=== PATIENT | female | born 1965 | race Caucasian/White ===

== ENCOUNTER 2017-08-07 15:38 | Outpatient (CLI) | payer OTHER | END 2017-08-07 15:39 | disposition home or self-care (01) | LOC: BICRAD 15:38 | PROVIDERS: ATTEND Family Medicine | DX: M25.461 Effusion, right knee (principal); M25.462 Effusion, left knee; M25.561 Pain in right knee; M25.562 Pain in left knee; J44.9 Chronic obstructive pulmonary disease, unspecified; J98.4 Other disorders of lung | CPT/HCPCS: 71046 ==

== ENCOUNTER 2017-08-11 13:56 | Outpatient (CLI) | payer OTHER | END 2017-08-11 13:57 | disposition home or self-care (01) | LOC: BICULT 13:56 | PROVIDERS: ATTEND Family Medicine | DX: R22.42 Localized swelling, mass and lump, left lower limb (principal); M71.22 Synovial cyst of popliteal space [Baker], left knee ==

== ENCOUNTER 2017-09-17 08:11 | Outpatient (CLI) | payer OTHER | END 2017-09-17 08:12 | disposition home or self-care (01) | LOC: BICMRI 08:11 | PROVIDERS: ATTEND Orthopaedic Surgery | DX: M25.562 Pain in left knee (principal); M25.462 Effusion, left knee; M71.22 Synovial cyst of popliteal space [Baker], left knee ==

== ENCOUNTER 2017-12-09 13:16 | Outpatient (CLI) | payer OTHER | END 2017-12-09 13:17 | disposition home or self-care (01) | LOC: BICMAMMO 13:16 | PROVIDERS: ATTEND Family Medicine | DX: Z12.31 Encounter for screening mammogram for malignant neoplasm of breast (principal); Z13.820 Encounter for screening for osteoporosis; M85.88 Other specified disorders of bone density and structure, other site; M85.859 Other specified disorders of bone density and structure, unspecified thigh; Z80.3 Family history of malignant neoplasm of breast | CPT/HCPCS: 77067; 77080 ==

== ENCOUNTER 2018-03-29 11:44 | Outpatient (CLI) | payer OTHER ==
--- NOTE | 2018-03-29 16:22 | MRI ---
MRI BRAIN WITH AND WITHOUT CONTRAST: HISTORY: Seizures. Convulsions. Fainting. COMPARISON: None. TECHNIQUE: A brain MRI is performed with and without intravenous Gadolinium administration. Multisequential, mu ltiplanar imaging is performed. FINDINGS: No hemorrhage on the coronal gradient echo sequence. Symmetric signal intensity of the hippocampi. The calvarium has a normal marrow signal intensity. Midline brain parenchymal structures are unremar kable. Central arterial flow voids are maintained. Absent restricted diffusion. No brain parenchymal mass, mass effect, or midline shift. Brain volume is age appropriate. Cortical owens white matter differentiation is preserved. The ventricles and sulci are patent and symmetric. Minimal T2 and FLAIR white matter hyperintensities due to chronic small vessel ischemic changes. There is mucosal disease involving the bilateral mastoid sinuses and ethmoid air cells. No pathologic enhancement of the brain parenchyma. There is an abnormal intrinsic T1 hyperintense lesion involving the left aspect of the sella, presume d to be associated with the left aspect of the pituitary gland. This intrinsic T1 hyperintense lesio n does have intrinsic FLAIR and T2 hyperintensity. Based on the axial T2 and FLAIR images, this les ion measures 1.1 cm anterior-posterior x 0.8 cm mediolateral. Based on the coronal T1 weighted image s, this lesion measures 0.7 cm. IMPRESSION: 1. No pathologic enhancement of the brain parenchyma. 2. No evidence of mesial temporal sclerosis. Absent restricted diffusion. No acute infarct. 3. Intrinsic T1 and T2 hyperintense lesion associated with the left aspect of the sella, presumed to be intrinsic to the pituitary gland. Dedicated pituitary protocol magnetic resonance imaging is rec ommended to assess a presumed adenoma. POS: [facility]
--- NOTE | 2018-03-31 09:30 | EEG ---
Referring Physician: Smooth [facility] EEG # [id number] TEST TYPE: ROUTINE OUTPATIENT REPORT: AN EEG USING THE [employer]NATIONAL TEN-TWENTY SYSTEM OF ELECTRODE PLACEMENT WAS PERFORMED. The waking background is a 9 hertz medium amplitude alpha frequency. The patient became drowsy but no sleep was seen. Hyperventilation and photic stimulation were unremarkable. No epileptiform features were seen. IMPRESSION: THIS IS A NORMAL AWAKE EEG. Analytics Associate: VY Cello Teacher: MAURO.SOSA OCHOA
== END 2018-03-29 11:45 | disposition home or self-care (01) ==
LOC: MRI 11:44
PROVIDERS: ATTEND Psychiatry & Neurology Neurology
DX: R56.9 Unspecified convulsions (principal); G93.9 Disorder of brain, unspecified
CPT/HCPCS: 70553; 95816

== ENCOUNTER 2018-06-21 16:19 | Outpatient (CLI) | payer OTHER ==
--- NOTE | 2018-06-21 19:01 | RAD ---
CHEST TWO VIEWS: HISTORY: A 53-year-old female with a history of cough, dyspnea, and fever off and on for two weeks. COMPARISON: 08/07/2017 FINDINGS: Increased bronchovascular markings noted bilaterally. There is some minimal patchy opacity changes i n the left mid lung zone and right middle lobe region, raising concern for minimal or early pneumonia . Heart size is within normal limits. No significant pleural effusion. IMPRESSION: Minimal patchy parenchymal changes in the left mid lung zone and in the region of the lingula, worris ome for minimal early bilateral atypical pneumonia or pneumonitis. Findings appear to be new when co mpared to a 08/07/2017 study. Suggest treatment and followup for complete clearing. POS: [facility]
== END 2018-06-21 16:20 | disposition home or self-care (01) ==
LOC: BICRAD 16:19
PROVIDERS: ATTEND Family Medicine
DX: R05 Cough (principal)
CPT/HCPCS: 71046

== ENCOUNTER 2018-12-21 13:44 | Outpatient (CLI) | payer OTHER ==
--- NOTE | 2018-12-21 14:33 | MMO ---
Bilateral MAMMO Bilat Screen DDI. CLINICAL HISTORY: Patient is 53 years old and is seen for screening. The patient has no family history of breast cancer. The patient has no personal history of cancer. VIEWS: The views performed were: bilateral craniocaudal and bilateral mediolateral oblique. FILMS COMPARED: The present examination has been compared to prior imaging studies performed at [facility] on 10/05/2013, 10/11/2014, 10/15/2015 and 10/15/2016. This study has been interpreted with the assistance of computer-aided detection. MAMMOGRAM FINDINGS: There are scattered fibroglandular densities. There are no suspicious masses, suspicious calcifications, or new areas of architectural distortion. IMPRESSION: THERE IS NO MAMMOGRAPHIC EVIDENCE OF MALIGNANCY. A ROUTINE FOLLOW-UP MAMMOGRAM IN 1 YEAR IS RECOMMENDED. ACR BI-RADS Category 1 - Negative MAMMOGRAPHY NOTE: 1. A negative mammogram report should not delay a biopsy if a dominant of clinically suspicious mass is present. 2. Approximately 10% to 15% of breast cancers are not detected by mammography. 3. Adenosis and dense breasts may obscure an underlying neoplasm.
--- NOTE | 2018-12-21 15:11 | BD ---
BONE DENSITOMETRY USING DEXA: HISTORY: Postmenopausal screening for osteoporosis. FINDINGS: LUMBAR SPINE BMD (g/cm2) T-SCORE Z-SCORE L1 0.774 -2.0 -1.1 L2 0.777 -2.3 -1.3 L3 0.813 -2.5 -1.4 L4 0.858 -1.8 -0.8 TOTAL 0.810 -2.2 -1.2 NECK 0.572 -2.5 -1.5 TOTAL 0.779 -1.3 -0.7 IMPRESSION: Osteoporosis. POS: [facility]
--- NOTE | 2018-12-21 15:28 | RAD ---
Exam:Right knee 4 views HISTORY: Osteoarthritis. COMPARISON: None FINDINGS: No joint effusion. No fracture. No malalignment. No significant loss of disc space height. IMPRESSION: Unremarkable right knee 4 views
--- NOTE | 2018-12-21 15:28 | RAD ---
EXAM: Chest PA and lateral: HISTORY: Pulmonary smoker, x20 years. COPD. COMPARISON: 06/21/2018 FINDINGS: Heart: Normal cardiac silhouette Aorta: Unremarkable Pulmonary vessels: Normal Costophrenic angles: Costophrenic angles are clear. Lungs: No consolidation or masses. Chronic changes of the lung parenchyma. Scar/subsegmental atelecta sis in the lingula. Pneumothorax: No pneumothorax Osseous structures: No osseous abnormalities IMPRESSION: No acute cardiopulmonary process.
--- NOTE | 2018-12-21 15:29 | RAD ---
Exam:Left knee 4 views HISTORY: Osteoarthritis. Torn meniscus. COMPARISON: None FINDINGS: No joint effusion. No fracture or malalignment.. IMPRESSION: Unremarkable 4 views left knee.
== END 2018-12-21 13:45 | disposition home or self-care (01) ==
LOC: BICMAMMO 13:44
PROVIDERS: ATTEND Family Medicine
DX: Z12.31 Encounter for screening mammogram for malignant neoplasm of breast (principal); Z13.820 Encounter for screening for osteoporosis; J44.9 Chronic obstructive pulmonary disease, unspecified; M17.10 Unilateral primary osteoarthritis, unspecified knee; M81.0 Age-related osteoporosis without current pathological fracture
CPT/HCPCS: 71046; 77067; 77080

== ENCOUNTER 2019-12-27 10:14 | Outpatient (CLI) | payer OTHER ==
--- NOTE | 2019-12-27 10:43 | MMO ---
Bilateral MAMMO Bilat Screen DDI. CLINICAL HISTORY: Patient is 54 years old and is seen for screening. The patient has no family history of breast cancer. The patient has no personal history of cancer. VIEWS: The views performed were: bilateral craniocaudal and bilateral mediolateral oblique. FILMS COMPARED: The present examination has been compared to prior imaging studies performed at [facility] on 10/11/2014, 10/15/2015, 10/15/2016 and 12/21/2018. This study has been interpreted with the assistance of computer-aided detection. MAMMOGRAM FINDINGS: There are scattered fibroglandular densities. There are no suspicious masses, suspicious calcifications, or new areas of architectural distortion. IMPRESSION: THERE IS NO MAMMOGRAPHIC EVIDENCE OF MALIGNANCY. A ROUTINE FOLLOW-UP MAMMOGRAM IN 1 YEAR IS RECOMMENDED. ACR BI-RADS Category 1 - Negative MAMMOGRAPHY NOTE: 1. A negative mammogram report should not delay a biopsy if a dominant of clinically suspicious mass is present. 2. Approximately 10% to 15% of breast cancers are not detected by mammography. 3. Adenosis and dense breasts may obscure an underlying neoplasm. Reported by: JESI ALEMAN MD Electonically Signed: [id number]
== END 2019-12-27 10:15 | disposition home or self-care (01) ==
LOC: BICMAMMO 10:14
PROVIDERS: ATTEND Family Medicine
DX: Z12.31 Encounter for screening mammogram for malignant neoplasm of breast (principal)
CPT/HCPCS: 77067

== ENCOUNTER 2020-05-30 09:19 | Outpatient (CLI) | payer OTHER ==
--- NOTE | 2020-05-30 11:48 | ULT ---
Bilateral renal ultrasound with renal artery Doppler evaluation CLINICAL INDICATION: Chronic kidney disease stage III. COMPARISON: None. FINDINGS: Right kidney: There is no evidence of a renal mass, renal calculus, or hydronephrosis seen. Mild danielle l cortical thinning is present.The right kidney measures 8.2 cm x 3.5 cm. Left kidney: A 2.1 cm anechoic structure is seen in the superior pole left kidney most compatible wit h a renal cyst. No hydronephrosis or renal cortical thinning is present on the left.The left kidney measures 9.5 cm x 4.4 cm. Urinary bladder: Decompressed and not well evaluated on this examination. Urinary bladder volume is 1 2.8 mL. Renal artery Doppler evaluation with spectral analysis and color flow: The peak systolic velocity in the main right renal artery is 60.2 cm/s with peak systolic velocity in the main left renal artery of 92 cm/s. Peak systolic velocity in the abdominal aorta is 115 cm/s. The right renal artery to aorta ratio 0.52 and the left renal artery to aorta ratio is 0.8. Normal re nal artery to aorta ratio is less than 3. Resistive index in the right renal arcuate artery 0.67 on the left is 0.64. Normal resistive indices are less than 0.7. IMPRESSION: 1. No evidence of hydronephrosis. 2. Mild right renal cortical thinning. 3. Left renal cyst. 4. Normal renal artery to aorta ratios and resistive indices in the arcuate arteries.
== END 2020-05-30 09:20 | disposition home or self-care (01) ==
LOC: BICULT 09:19
PROVIDERS: ATTEND Internal Medicine Nephrology
DX: N18.30 Chronic kidney disease, stage 3 unspecified (principal); N28.1 Cyst of kidney, acquired; N28.89 Other specified disorders of kidney and ureter
CPT/HCPCS: 76770; 93975

== ENCOUNTER 2021-04-18 10:34 | Outpatient (CLI) | payer OTHER ==
[2021-04-18 12:04] LABS: #Eosinphils 0.1 10x3/uL (0.0-0.5); #Monocytes 0.3 10x3/uL (0.0-1.1); #Neutrophils 1.7 10x3/uL (1.5-8.4); %Basophils 0.8 % (0.0-2.0); %Eosinophils 2.5 % (0.0-6.0); %Lymphocytes 44.7 % (18.0-47.0); %Monocytes 8.5 % (0.0-10.0); %Neutrophils 43.2 % (40.0-75.0); Hemoglobin 15.8 g/dL (12.0-15.5); Mean Corpuscular HGB CONC 31.6 g/dL (32.0-36.0); Mean Corpuscular Hemoglobin 28.8 pg (27.0-33.0); Mean Corpuscular Volume 91.1 fl (81.6-98.3); Mean Platelet Volume 12.2 fl (7.4-10.4); Platelet Count 181 10x3/uL (150-450); RBC Distribution Width 17.8 % (11.5-14.5); Red Blood Cell (RBC) Count 5.49 10x6/uL (3.90-5.03)
[2021-04-18 12:35] LABS: Prothrombin Time 10.9 sec (9.5-12.1)
[2021-04-18 12:40] LABS: Anion Gap 11 mmol/L (10-20); BUN (Urea Nitrogen) 9 mg/dL (9.8-20.1); Calc. Creatinine Clearance 0 mL/min (70-130); Calcium 9.4 mg/dL (7.8-10.44); Carbon Dioxide 31 mmol/L (22-29); Chloride 102 mmol/L (98-107); Glucose 77 mg/dL (70-105); Potassium 4.1 mmol/L (3.5-5.1); Sodium 140 mmol/L (136-145)
[2021-04-19 01:05] LABS: SARS-CoV-2 PCR by NAA Not Detected (NotDetected)
== END 2021-04-18 10:35 | disposition home or self-care (01) ==
LOC: LABBT 10:34
PROVIDERS: ATTEND Orthopaedic Surgery
DX: Z01.818 Encounter for other preprocedural examination (principal); M17.11 Unilateral primary osteoarthritis, right knee; Z20.822 Contact with and (suspected) exposure to COVID-19
CPT/HCPCS: 80048; 85025; 85610; 87081; 93005; 93010; U0003; U0005

== ENCOUNTER 2021-06-13 10:11 | Outpatient (CLI) | payer OTHER ==
[2021-06-13 12:24] LABS: #Eosinphils 0.1 10x3/uL (0.0-0.5); #Monocytes 0.4 10x3/uL (0.0-1.1); #Neutrophils 2.8 10x3/uL (1.5-8.4); %Basophils 0.2 % (0.0-2.0); %Eosinophils 1.6 % (0.0-6.0); %Lymphocytes 33.5 % (18.0-47.0); %Monocytes 8.2 % (0.0-10.0); %Neutrophils 56.3 % (40.0-75.0); Hemoglobin 16.8 g/dL (12.0-15.5); Mean Corpuscular HGB CONC 31.4 g/dL (32.0-36.0); Mean Corpuscular Hemoglobin 29.2 pg (27.0-33.0); Mean Corpuscular Volume 92.9 fl (81.6-98.3); Platelet Count 164 10x3/uL (150-450); RBC Distribution Width 17.1 % (11.5-14.5); Red Blood Cell (RBC) Count 5.76 10x6/uL (3.90-5.03)
[2021-06-13 12:45] LABS: Prothrombin Time 10.7 sec (9.5-12.1)
[2021-06-13 13:07] LABS: Anion Gap 14 mmol/L (10-20); BUN (Urea Nitrogen) 12 mg/dL (9.8-20.1); Calc. Creatinine Clearance 0 mL/min (70-130); Calcium 9.2 mg/dL (7.8-10.44); Carbon Dioxide 31 mmol/L (22-29); Chloride 101 mmol/L (98-107); Glucose 90 mg/dL (70-105); Potassium 4.5 mmol/L (3.5-5.1); Sodium 141 mmol/L (136-145)
[2021-06-13 22:08] LABS: SARS-CoV-2 PCR by NAA Not Detected (NotDetected)
== END 2021-06-13 10:12 | disposition home or self-care (01) ==
LOC: LABBT 10:11
PROVIDERS: ATTEND Orthopaedic Surgery
DX: Z01.818 Encounter for other preprocedural examination (principal); M17.11 Unilateral primary osteoarthritis, right knee; Z20.822 Contact with and (suspected) exposure to COVID-19
CPT/HCPCS: 80048; 85025; 85610; 87081; 93005; 93010; U0003; U0005

== ENCOUNTER 2021-06-18 07:08 | Inpatient (IN) | payer OTHER ==
[2021-06-17 12:20] VITALS: BMI 22.1
[2021-06-18] MEDS ORDERED: Sodium Chloride 0.9% 100 ML ONE (07:44)
[2021-06-18] MEDS ORDERED: Tranexamic Acid 1,000 MG/10 ML VIAL ONE (07:44)
[2021-06-18] MEDS ORDERED: ceFAZolin 2 GM/DEX 5% 100 ML BAG ONE (07:44)
[2021-06-18] MEDS ORDERED: Vancomycin 1 GM/200 ML BAG ONE (07:44)
[2021-06-18] MEDS ORDERED: Fentanyl 100 MCG/2 ML VIAL ONE ×2 (08:50→09:45)
[2021-06-18] MEDS ORDERED: Midazolam HCl 2 mg/2 ml Vial ONE (08:50)
[2021-06-18] MEDS ORDERED: Sodium Chloride 0.9% 10 ML ONE (09:46)
[2021-06-18] MEDS ORDERED: HYDROmorphone 2 MG/ML VIAL ONE (09:46)
[2021-06-18] MEDS ORDERED: Fentanyl 100 MCG/2 ML VIAL SLOW IVP PRN (10:04)
[2021-06-18] MEDS ORDERED: PROPOFOL 200 MG/20 ML VIAL ONE (10:15)
[2021-06-18] MEDS ORDERED: Bupivacaine HCl 0.5%/Epinephrine 1:200,000/PF 30 ml Vial ONE (10:15)
[2021-06-18] MEDS ORDERED: Metoclopramide HCl 10 MG/2 ML VIAL ONE (10:15)
[2021-06-18] MEDS ORDERED: traMADol HCl 50 MG TAB PO PRN ×2 (10:15)
[2021-06-18] MEDS ORDERED: Lidocaine 1% PF 5 ML VIAL ONE (10:15)
[2021-06-18] MEDS ORDERED: Ondansetron PF 4 MG/2 ML Vial ONE (10:15)
[2021-06-18] MEDS ORDERED: Ondansetron PF 4 MG/2 ML Vial IVP PRN ×3 (10:15→12:13)
[2021-06-18] MEDS ORDERED: HYDROcodone/Acetaminophen 10/325 mg Tablet PO PRN ×2 (10:15)
[2021-06-18] MEDS ORDERED: Dexamethasone 20 MG/5 ML VIAL ONE (10:15)
[2021-06-18] MEDS ORDERED: Zolpidem Tartrate 5 MG TAB PO PRN ×3 (10:15→12:13)
[2021-06-18] MEDS ORDERED: Ropivacaine 0.2% 550 ML 550 ML NERVE BLCK SCH (10:15)
[2021-06-18] MEDS ORDERED: Promethazine HCl 25 MG/ML VIAL IM PRN ×4 (10:15→12:13)
[2021-06-18] MEDS ORDERED: EPINEPHrine 1 MG/ML AMP ONE (10:41)
[2021-06-18] MEDS ORDERED: Bupivacaine 0.25% 10 ML VIAL ONE ×2 (10:41→11:27)
[2021-06-18] MEDS ORDERED: diphenhydrAMINE 25 MG CAP PO PRN ×2 (12:13)
[2021-06-18] MEDS ORDERED: Meperidine HCl/PF 25 MG/ML VIAL SLOW IVP PRN (12:13)
[2021-06-18] MEDS ORDERED: diphenhydrAMINE 50 MG/ML VIAL IM PRN (12:13)
[2021-06-18] MEDS ORDERED: diphenhydrAMINE 50 MG/ML VIAL IVP PRN (12:13)
[2021-06-18] MEDS ORDERED: fentaNYL Citrate/PF 2,000 MCG in Sodium Chloride 0.9% 60 ML IV PRN (12:13)
[2021-06-18] MEDS ORDERED: Naloxone HCl 0.4 mg/ml Vial IV PRN (12:13)
[2021-06-18] MEDS ORDERED: Ondansetron HCl/PF 4 MG/2 ML Vial IVP PRN (12:13)
[2021-06-18] MEDS ORDERED: Acetaminophen 325 MG TAB PO PRN (12:13)
[2021-06-18] MEDS ORDERED: Promethazine HCl 25 MG/ML VIAL IVPB PRN (12:13)
[2021-06-18] MEDS ORDERED: HYDROmorphone 2 MG/ML VIAL SLOW IVP PRN (12:13)
[2021-06-18] MEDS ORDERED: Communication Order-Pharmacy FS SCH (12:15)
[2021-06-18] MEDS ORDERED: traZODone HCl 50 MG TAB PO PRN (15:47)
[2021-06-18] MEDS ORDERED: Albuterol Sulfate 2.5 mg/3 ml Neb NEB PRN (15:55)
[2021-06-18] MEDS: Sodium Chloride 0.9% 1,000 ML IV SCH ×2 (16:48→23:28)
[2021-06-18] MEDS: ceFAZolin Sodium/D5W 2 GM in Premix Bag 1 BAG IVPB SCH ×2 (16:48→23:28)
[2021-06-18] MEDS ORDERED: Vancomycin 1 GM in Premix Bag 1 BAG IVPB SCH (21:00)
[2021-06-18] MEDS ORDERED: Pregabalin 75 MG CAP PO SCH (21:00)
[2021-06-18] MEDS: Aspirin 81 mg Enteric Coated Tablet PO SCH (21:10)
[2021-06-18] MEDS: levETIRAcetam 500 MG TAB PO SCH (21:11)
[2021-06-18] MEDS: Montelukast Sodium 10 mg Tablet PO SCH (21:11)
[2021-06-18] MEDS: Atorvastatin Calcium 10 MG TAB PO SCH (21:11)
[2021-06-18] MEDS: lamoTRIgine 25 MG TAB PO SCH (21:11)
[2021-06-19 07:19] LABS: Hemoglobin 14.6 g/dL (12.0-16.0); Mean Corpuscular HGB CONC 32.5 g/dL (32.0-36.0); Mean Corpuscular Hemoglobin 30.5 pg (27.0-31.0); Mean Corpuscular Volume 93.9 fL (78.0-98.0); Mean Platelet Volume 10.3 fL (7.4-10.4); Platelet Count 103 thou/uL (130-400); RBC Distribution Width 15.6 % (11.5-14.5); Red Blood Cell (RBC) Count 4.79 mill/uL (4.20-5.40); White Blood Cell (WBC) Count 6.5 thou/uL (4.8-10.8)
[2021-06-19] MEDS: Aspirin 81 mg Enteric Coated Tablet PO SCH ×2 (08:46→20:51)
[2021-06-19] MEDS: Ferrous Gluconate 324 MG TAB PO SCH ×2 (08:47→20:50)
[2021-06-19] MEDS: levETIRAcetam 500 MG TAB PO SCH ×2 (08:47→20:50)
[2021-06-19] MEDS: Multivitamin W/ Minerals 1 TAB PO SCH (08:47)
[2021-06-19] MEDS: lamoTRIgine 25 MG TAB PO SCH ×2 (08:48→20:50)
[2021-06-19] MEDS: DULoxetine 30 MG CAP PO SCH (08:49)
[2021-06-19] MEDS: Furosemide 20 MG TAB PO SCH (08:49)
[2021-06-19] MEDS: Senokot S 8.6-50 MG TAB PO SCH ×2 (08:50→20:51)
[2021-06-19] MEDS ORDERED: FLU VACC QS2021-22(6MOS UP)/PF 60 MCG/0.5 ML SYRINGE IM ONE (09:00)
[2021-06-19] MEDS: Atorvastatin Calcium 10 MG TAB PO SCH (20:50)
[2021-06-19] MEDS: Montelukast Sodium 10 mg Tablet PO SCH (20:50)
[2021-06-19] MEDS: Sodium Chloride 0.9% 1,000 ML IV SCH ×2 (20:51→20:52)
[2021-06-20] MEDS: Sodium Chloride 0.9% 1,000 ML IV SCH ×2 (05:04→20:56)
[2021-06-20 07:16] LABS: Hemoglobin 14.5 g/dL (12.0-16.0); Mean Corpuscular HGB CONC 32.8 g/dL (32.0-36.0); Mean Corpuscular Hemoglobin 30.7 pg (27.0-31.0); Mean Corpuscular Volume 93.4 fL (78.0-98.0); Mean Platelet Volume 10.9 fL (7.4-10.4); Platelet Count 94 thou/uL (130-400); RBC Distribution Width 15.7 % (11.5-14.5); Red Blood Cell (RBC) Count 4.74 mill/uL (4.20-5.40); White Blood Cell (WBC) Count 6.8 thou/uL (4.8-10.8)
[2021-06-20] MEDS: Multivitamin W/ Minerals 1 TAB PO SCH (09:19)
[2021-06-20] MEDS: Aspirin 81 mg Enteric Coated Tablet PO SCH ×2 (09:19→20:57)
[2021-06-20] MEDS: DULoxetine 30 MG CAP PO SCH (09:19)
[2021-06-20] MEDS: levETIRAcetam 500 MG TAB PO SCH ×2 (09:20→20:58)
[2021-06-20] MEDS: lamoTRIgine 25 MG TAB PO SCH ×2 (09:21→20:59)
[2021-06-20] MEDS: Ferrous Gluconate 324 MG TAB PO SCH ×2 (09:22→20:59)
[2021-06-20] MEDS: Furosemide 20 MG TAB PO SCH (09:23)
[2021-06-20] MEDS: Senokot S 8.6-50 MG TAB PO SCH ×2 (09:23→20:59)
[2021-06-20 09:40] LABS: ALT (SGPT) 42 U/L (8-55); AST (SGOT) 37 U/L (5-34); Alkaline Phosphatase 144 U/L (40-110); Anion Gap 12 mmol/L (10-20); BUN (Urea Nitrogen) 9 mg/dL (9.8-20.1); Bilirubin, Total 1.2 mg/dL (0.2-1.2); Calc. Creatinine Clearance 73 mL/min (70-130); Carbon Dioxide 27 mmol/L (22-29); Chloride 100 mmol/L (98-107); Globulin 3.1 g/dL (2.4-3.5); Glucose 96 mg/dL (70-105); Potassium 3.7 mmol/L (3.5-5.1); Protein, Total 6.1 g/dL (6.0-8.3); Sodium 135 mmol/L (136-145)
[2021-06-20] MEDS ORDERED: Furosemide 20 MG/2 ML VIAL SLOW IVP SCH (10:00)
[2021-06-20] MEDS ORDERED: predniSONE 20 MG TAB PO SCH (10:45)
[2021-06-20] MEDS ORDERED: Doxycycline 100 MG CAP PO SCH (10:45)
[2021-06-20] MEDS ORDERED: traZODone HCl 50 MG TAB PO PRN (10:53)
[2021-06-20] MEDS ORDERED: Metoclopramide HCl 10 MG/2 ML VIAL IVP PRN (11:59)
[2021-06-20] MEDS ORDERED: HYDROcodone/Acetaminophen 10/325 mg Tablet PO PRN ×2 (13:14)
[2021-06-20] MEDS: Pregabalin 75 MG CAP PO SCH (20:58)
[2021-06-20] MEDS: Doxycycline 100 MG CAP PO SCH (21:00)
[2021-06-20] MEDS ORDERED: Atorvastatin Calcium 10 MG TAB PO SCH (21:00)
[2021-06-20] MEDS ORDERED: Montelukast Sodium 10 mg Tablet PO SCH (21:00)
[2021-06-21] MEDS: Sodium Chloride 0.9% 1,000 ML IV SCH ×2 (02:30→10:42)
[2021-06-21 06:11] LABS: Actual Bicarbonate (HCO3v) 30 mEq/L (22-28); Base Excess 4.6 mEq/L (-2.0 to +3.0); Calcium, Ionized (venous) 1.11 mmol/L (1.16-1.32); Chloride (VBG) 102 mmol/L (98-106); Potassium (VBG) 3.63 mmol/L (3.70-5.30); Sodium 136.1 mmol/L (133-146); pH (venous) 7.43 (7.32-7.43)
[2021-06-21 06:44] LABS: ALT (SGPT) 27 U/L (8-55); AST (SGOT) 15 U/L (5-34); Albumin 2.8 g/dL (3.5-5.0); Alkaline Phosphatase 115 U/L (40-110); Anion Gap 9 mmol/L (10-20); BUN (Urea Nitrogen) 12 mg/dL (9.8-20.1); Bilirubin, Total 0.8 mg/dL (0.2-1.2); Calc. Creatinine Clearance 73 mL/min (70-130); Calcium 8.9 mg/dL (7.8-10.44); Carbon Dioxide 29 mmol/L (22-29); Chloride 100 mmol/L (98-107); Globulin 2.9 g/dL (2.4-3.5); Glucose 100 mg/dL (70-105); Magnesium 2.1 mg/dL (1.6-2.6); Phosphorus 2.5 mg/dL (2.3-4.7); Potassium 3.3 mmol/L (3.5-5.1); Protein, Total 5.7 g/dL (6.0-8.3); Sodium 135 mmol/L (136-145)
[2021-06-21 06:49] LABS: #Monocytes 0.5 thou/uL (0.11-0.59); #Neutrophils 4.5 thou/uL (1.40-6.50); %Basophils 0.8 % (0.0-1.0); %Eosinophils 0.2 % (0.0-10.0); %Lymphocytes 16.9 % (21.0-51.0); %Monocytes 8.1 % (0.0-10.0); %Neutrophils 73.9 % (42.0-75.0); Hemoglobin 12.9 g/dL (12.0-16.0); Mean Corpuscular HGB CONC 32.4 g/dL (32.0-36.0); Mean Corpuscular Hemoglobin 30.3 pg (27.0-31.0); Mean Corpuscular Volume 93.6 fL (78.0-98.0); Mean Platelet Volume 10.3 fL (7.4-10.4); Platelet Count 89 thou/uL (130-400); RBC Distribution Width 15.4 % (11.5-14.5); Red Blood Cell (RBC) Count 4.24 mill/uL (4.20-5.40)
[2021-06-21] MEDS ORDERED: Potassium Chloride 20 MEQ TAB PO SCH (07:00)
[2021-06-21] MEDS ORDERED: predniSONE 20 MG TAB PO SCH (08:00)
[2021-06-21] MEDS: levETIRAcetam 500 MG TAB PO SCH (08:55)
[2021-06-21] MEDS: Doxycycline 100 MG CAP PO SCH (08:55)
[2021-06-21] MEDS: Senokot S 8.6-50 MG TAB PO SCH (08:56)
[2021-06-21] MEDS: lamoTRIgine 25 MG TAB PO SCH (08:57)
[2021-06-21] MEDS: Ferrous Gluconate 324 MG TAB PO SCH (08:57)
[2021-06-21] MEDS: Multivitamin W/ Minerals 1 TAB PO SCH (08:57)
[2021-06-21] MEDS: Pregabalin 75 MG CAP PO SCH (08:57)
[2021-06-21] MEDS: Aspirin 81 mg Enteric Coated Tablet PO SCH (08:57)
[2021-06-21] MEDS ORDERED: Furosemide 20 MG TAB PO SCH (09:00)
[2021-06-21] MEDS ORDERED: DULoxetine 30 MG CAP PO SCH (09:00)
[2021-06-21 15:44] VITALS: BP 139/92; TEMP 98.4
== END 2021-06-21 16:40 | disposition home or self-care (01) | DRG 469 ==
LOC: SDC 07:08 → SURG B 12:13 → SDC 18:09 → SURG B 18:09 → OBSVTOIN 06-21 11:04
PROVIDERS: ADMIT Orthopaedic Surgery; ATTEND Orthopaedic Surgery
PROC: 0SRC0J9 Replacement of Right Knee Joint with Synthetic Substitute, Cemented, Open Approach (ICD-10-PCS; principal; 2021-06-18)
DX: M17.11 Unilateral primary osteoarthritis, right knee (principal); J96.01 Acute respiratory failure with hypoxia; Z20.822 Contact with and (suspected) exposure to COVID-19; J44.1 Chronic obstructive pulmonary disease with (acute) exacerbation; G89.29 Other chronic pain; D35.2 Benign neoplasm of pituitary gland; E78.5 Hyperlipidemia, unspecified; I25.10 Atherosclerotic heart disease of native coronary artery without angina pectoris; G47.00 Insomnia, unspecified; F31.70 Bipolar disorder, currently in remission, most recent episode unspecified; F11.21 Opioid dependence, in remission; I12.9 Hypertensive chronic kidney disease with stage 1 through stage 4 chronic kidney disease, or unspecified chronic kidney disease; E78.00 Pure hypercholesterolemia, unspecified; F41.9 Anxiety disorder, unspecified; N18.30 Chronic kidney disease, stage 3 unspecified; Z79.82 Long term (current) use of aspirin; Z79.899 Other long term (current) drug therapy; Z87.891 Personal history of nicotine dependence; Z88.7 Allergy status to serum and vaccine; Z90.49 Acquired absence of other specified parts of digestive tract
CPT/HCPCS: 36415; 71045; 80053; 82805; 83735; 83880; 84100; 85025; 85027; 93306; 94640; A4306; C1713; C1776; J0171; J1100; J1170; J1940; J2250; J2405; J2704; J2765; J2795; J3010; J3370; J3490; J7050; J7512; J7611; J7620; S0020

== ENCOUNTER 2022-05-01 14:22 | Outpatient (CLI) | payer OTHER | END 2022-05-01 14:23 | disposition home or self-care (01) | LOC: BICMAMMO 14:22 | PROVIDERS: ATTEND Family Medicine | DX: Z12.31 Encounter for screening mammogram for malignant neoplasm of breast (principal) | CPT/HCPCS: 77067 ==

== ENCOUNTER 2023-09-02 13:19 | Outpatient (CLI) | payer OTHER | END 2023-09-02 13:20 | disposition home or self-care (01) | LOC: BICMAMMO 13:19 | PROVIDERS: ATTEND Family Medicine | DX: Z12.31 Encounter for screening mammogram for malignant neoplasm of breast (principal); M81.0 Age-related osteoporosis without current pathological fracture; M85.80 Other specified disorders of bone density and structure, unspecified site | CPT/HCPCS: 77067; 77080 ==

== ENCOUNTER 2024-01-29 14:28 | Outpatient (CLI) | payer OTHER | END 2024-01-29 14:29 | disposition home or self-care (01) | LOC: EEG 14:28 | PROVIDERS: ATTEND Psychiatry & Neurology Neurology | DX: R56.9 Unspecified convulsions (principal) | CPT/HCPCS: 95816 ==